=== PATIENT | male | born 1965 | race Caucasian/White ===

== ENCOUNTER 2018-09-23 11:44 | Day surgery (SDC) | payer OTHER ==
[~2018-09-23] VITALS: Ht 188 cm; Wt 110.4 kg
[2018-09-23 12:57] VITALS: BP 124/83
== END 2018-09-23 17:25 | disposition home or self-care (01) ==
LOC: OUT 11:44
PROVIDERS: ATTEND Podiatrist Foot & Ankle Surgery
DX: S93.125A Dislocation of metatarsophalangeal joint of left lesser toe(s), initial encounter (principal); E11.621 Type 2 diabetes mellitus with foot ulcer; I42.9 Cardiomyopathy, unspecified; I10 Essential (primary) hypertension; Z88.2 Allergy status to sulfonamides; Z95.810 Presence of automatic (implantable) cardiac defibrillator; X58.XXXA Exposure to other specified factors, initial encounter; Y93.89 Activity, other specified; Y92.89 Other specified places as the place of occurrence of the external cause; Y99.8 Other external cause status
CPT/HCPCS: 28112; 80053; 82962; 93005; J0171; J0690; J2250; J2704; J3010; J7120

== ENCOUNTER 2018-10-07 06:13 | Day surgery (SDC) | payer OTHER ==
[~2018-10-07] VITALS: Ht 188 cm; Wt 108.4 kg
[~2018-10-07 06:13] MED LIST: AMOX1TAB12 PO; ASPI-496 PO; CARV-39 PO; FENO54TA17 PO; LISI-170 PO; METF500T17 PO; ROSU5TAB PO
[2018-10-07] MEDS ORDERED: methylPREDNISolone *ACETATE* 40 MG/ML ONE (06:20)
[2018-10-07] MEDS ORDERED: BUPIVACAINE/PF 0.25% ONE (06:20)
[2018-10-07] MEDS ORDERED: BETAMETHASONE 6 MG/ML, 5ML IM ONE (06:24)
[2018-10-07] MEDS ORDERED: LACTATED RINGERS 1,000 ML IV SCH (06:47)
[2018-10-07 06:48] VITALS: BP 138/87
[2018-10-07] MEDS ORDERED: BUPIVACAINE/PF 0.5% ONE (07:17)
[2018-10-07] MEDS ORDERED: LIDOCAINE 1%-EPI 1:100K, 30ML ONE (07:18)
[2018-10-07] MEDS ORDERED: FENTANYL PF 100 MCG/2ML ONE (07:19)
[2018-10-07] MEDS ORDERED: MIDAZOLAM 1 MG/ML, 2ML ONE ×3 (07:19→08:41)
[2018-10-07] MEDS ORDERED: CEFAZOLIN 1,000 MG ONE (07:25)
[2018-10-07] MEDS ORDERED: METOPROLOL 1 MG/ML, 5ML ONE (07:25)
[2018-10-07] MEDS ORDERED: OXYcodone 5 MG/5 ML ORAL.SOL UDC PO PRN (08:00)
[2018-10-07] MEDS ORDERED: LABETALOL 5MG/ML, 20ML IV PRN (08:00)
[2018-10-07] MEDS ORDERED: MEPERIDINE/PF 25MG/0.5ML IVPush PRN (08:00)
[2018-10-07] MEDS ORDERED: DIAZEPAM 5 MG/ML, 2ML IVPush PRN (08:00)
[2018-10-07] MEDS ORDERED: ALBUTEROL SULFATE 2.5 MG/3 ML NPPB PRN (08:00)
[2018-10-07] MEDS ORDERED: FENTANYL PF 100 MCG/2ML IV PRN (08:00)
[2018-10-07] MEDS ORDERED: hydrALAzine 20 MG/ML, 1ML IV PRN (08:00)
[2018-10-07] MEDS ORDERED: PROMETHAZINE 25 MG/ML, 1ML IV PRN (08:00)
[2018-10-07] MEDS ORDERED: KETOROLAC 30 MG/1 ML IV PRN (08:00)
[2018-10-07] MEDS ORDERED: HYDROmorphone 2 MG/ML, 1ML IVPush PRN (08:00)
[2018-10-07] MEDS ORDERED: ACETAMINOPHEN 325 MG TABLET PO PRN (08:00)
== END 2018-10-07 11:00 | disposition home or self-care (01) ==
LOC: OUT 06:13
PROVIDERS: ATTEND Podiatrist Foot & Ankle Surgery
DX: M24.474 Recurrent dislocation, right foot (principal); E11.42 Type 2 diabetes mellitus with diabetic polyneuropathy; L89.893 Pressure ulcer of other site, stage 3; E11.621 Type 2 diabetes mellitus with foot ulcer; M20.11 Hallux valgus (acquired), right foot; I11.0 Hypertensive heart disease with heart failure; I50.9 Heart failure, unspecified; I48.91 Unspecified atrial fibrillation; Z79.82 Long term (current) use of aspirin; Z79.84 Long term (current) use of oral hypoglycemic drugs; Z79.899 Other long term (current) drug therapy; Z88.2 Allergy status to sulfonamides; Z88.8 Allergy status to other drugs, medicaments and biological substances; Z95.810 Presence of automatic (implantable) cardiac defibrillator
CPT/HCPCS: 28112; 82962; J0690; J2250; J3010; J3490; J0702; J1030

== ENCOUNTER 2019-06-17 16:11 | Inpatient (IN) | payer OTHER ==
[~2019-06-17] VITALS: Ht 188 cm; Wt 118.2 kg
[2019-06-17] MEDS ORDERED: AMIO200T42 PO (18:55)
[2019-06-17 20:00] VITALS: BP 136/83
[2019-06-17] MEDS ORDERED: METF-649 PO (21:33)
[2019-06-17] MEDS ORDERED: SPIR25TA5 PO (21:35)
[2019-06-17] MEDS ORDERED: AMPI3VIA IV (21:41)
[2019-06-17] MEDS ORDERED: SIMV20TA19 PO (21:46)
[2019-06-17] MEDS ORDERED: VANC2PLA5 IVPB (21:49)
[2019-06-17] MEDS ORDERED: AMPICILLIN SODIUM IV SCH (22:30)
[2019-06-17] MEDS ORDERED: SULBACTAM NA IV SCH (22:30)
[2019-06-17] MEDS ORDERED: hydrALAzine 20 MG/ML, 1ML IVPush PRN (22:30)
[2019-06-17] MEDS ORDERED: VANCOMYCIN PER PHARMACY MC PRN (22:30)
[2019-06-17] MEDS ORDERED: TEMAZEPAM 15 MG CAPSULE PO PRN (22:30)
[2019-06-17] MEDS ORDERED: ACETAMINOPHEN 325 MG TABLET PO PRN (22:30)
[2019-06-17] MEDS ORDERED: LIDODERM 5% PATCH TD PRN (22:30)
[2019-06-17] MEDS ORDERED: DOCUSATE 100 MG CAPSULE PO PRN (22:30)
[2019-06-17] MEDS ORDERED: ONDANSETRON ODT 4 MG PO PRN (22:30)
[2019-06-17 22:36] VITALS: BP 129/78
[2019-06-17] MEDS ORDERED: PHARMACOKINETIC CONSULTATION MC ONE (23:00)
[2019-06-17] MEDS ORDERED: PHARMACOKINETIC MONITORING MC PRN (23:00)
[2019-06-17] MEDS ORDERED: VANCOMYCIN 2,400 MG in SODIUM CHLORIDE 0.9% 500 ML IV ONE (23:00)
[2019-06-17] MEDS ORDERED: SIMVASTATIN 20 MG TABLET ONE (23:10)
[2019-06-17 23:16] LABS: CREATININE 0.89 mg/dL (0.7-1.3)
[2019-06-17] MEDS: CARVEDILOL 12.5 MG TABLET PO SCH (23:23)
[2019-06-17] MEDS: SIMVASTATIN 20 MG TABLET PO SCH (23:25)
[2019-06-17] MEDS: HYDROmorphone 2 MG/ML, 1ML IVPush PRN (23:26)
[2019-06-18] MEDS: AMPICILLIN/SULBACTAM 3 GM in SODIUM CHLORIDE 0.9% 100 ML IV SCH ×5 (00:13→20:00)
[2019-06-18 00:21] VITALS: BP 133/78
[2019-06-18] MEDS: VANCOMYCIN 2,000 MG in SODIUM CHLORIDE 0.9% 500 ML IV SCH ×2 (01:42→14:47)
[2019-06-18 05:07] LABS: BASOPHILS # (AUTO) 0.05 x10^3/uL (0-0.1); BASOPHILS % (AUTO) 1 % (0-1); EOSINOPHILS # (AUTO) 0.17 x10^3/uL (0-0.4); EOSINOPHILS % (AUTO) 2 % (1-7); LYMPHOCYTES # (AUTO) 1.44 x10^3/uL (1-3.4); LYMPHOCYTES % (AUTO) 17 % (22-44); MD NO; MEAN CORPUSCULAR HEMOGLOBIN 32.6 pg (27.5-34.5); MEAN CORPUSCULAR HGB CONC 33.4 g/dL (33.2-36.2); MEAN CORPUSCULAR VOLUME 97.7 fL (81-97); MONOCYTES # (AUTO) 0.71 x10^3/uL (0.2-0.8); MONOCYTES % (AUTO) 9 % (2-9); NEUTROPHILS # (AUTO) 5.97 x10^3/uL (1.8-6.8); NEUTROPHILS % (AUTO) 72 % (42-75); PLATELET COUNT 223 x10^3/uL (130-400); RED BLOOD COUNT 3.15 x10^6/uL (4.38-5.82); RED CELL DISTRIBUTION WIDTH 13.4 % (9.4-14.8)
[2019-06-18 05:15] LABS: ANION GAP 6 mmol/L (5-15); CALCIUM 7.5 mg/dL (8.5-10.1); CHLORIDE 105 mmol/L (98-107); CREATININE 0.96 mg/dL (0.7-1.3)
[2019-06-18] MEDS: INSULIN LISPRO 100 UNITS/ML, PEN SQ-INSULIN SCH ×4 (07:52→21:00)
[2019-06-18 08:00] VITALS: BP 123/82
[2019-06-18] MEDS: AMIODARONE 200 MG TABLET PO SCH (08:34)
[2019-06-18] MEDS: CARVEDILOL 12.5 MG TABLET PO SCH ×2 (08:35→20:01)
[2019-06-18] MEDS: SIMVASTATIN 20 MG TABLET PO SCH ×2 (08:42→20:02)
[2019-06-18] MEDS: LISINOPRIL 20 MG TABLET PO SCH ×2 (10:59→20:01)
[2019-06-18] MEDS: SPIRONOLACTONE 25 MG TABLET PO SCH (11:03)
[2019-06-18 12:12] VITALS: BP 123/76
[2019-06-18] MEDS ORDERED: ENOXAPARIN 40 MG/0.4 ML SQ SCH (17:30)
[2019-06-18 20:45] VITALS: BP 137/86
[2019-06-18] MEDS: HYDROmorphone 2 MG/ML, 1ML IVPush PRN (22:20)
[2019-06-19] MEDS: AMPICILLIN/SULBACTAM 3 GM in SODIUM CHLORIDE 0.9% 100 ML IV SCH ×2 (02:05→09:18)
[2019-06-19 02:59] VITALS: BP 128/67
[2019-06-19] MEDS: VANCOMYCIN 2,000 MG in SODIUM CHLORIDE 0.9% 500 ML IV SCH (03:11)
[2019-06-19 05:33] LABS: HCT (SEDRATE) 30.7 % (39.2-51.8)
[2019-06-19 05:36] LABS: BASOPHILS # (AUTO) 0.05 x10^3/uL (0-0.1); BASOPHILS % (AUTO) 1 % (0-1); EOSINOPHILS # (AUTO) 0.15 x10^3/uL (0-0.4); EOSINOPHILS % (AUTO) 2 % (1-7); LYMPHOCYTES # (AUTO) 1.04 x10^3/uL (1-3.4); LYMPHOCYTES % (AUTO) 15 % (22-44); MD NO; MEAN CORPUSCULAR HEMOGLOBIN 32.8 pg (27.5-34.5); MEAN CORPUSCULAR HGB CONC 33.4 g/dL (33.2-36.2); MEAN CORPUSCULAR VOLUME 98.2 fL (81-97); MEAN PLATELET VOLUME 9.5 fL (7.4-10.4); MONOCYTES % (AUTO) 9 % (2-9); NEUTROPHILS % (AUTO) 73 % (42-75); PLATELET COUNT 254 x10^3/uL (130-400); RED BLOOD COUNT 3.07 x10^6/uL (4.38-5.82); RED CELL DISTRIBUTION WIDTH 13.4 % (9.4-14.8)
[2019-06-19 05:44] LABS: ANION GAP 6 mmol/L (5-15); CALCIUM 7.8 mg/dL (8.5-10.1); CHLORIDE 105 mmol/L (98-107); CREATININE 0.79 mg/dL (0.7-1.3)
[2019-06-19 06:29] VITALS: BP 142/87
[2019-06-19] MEDS: INSULIN LISPRO 100 UNITS/ML, PEN SQ-INSULIN SCH ×2 (07:00→11:05)
[2019-06-19] MEDS ORDERED: PHENYLEPHRINE 50 MG in SODIUM CHLORIDE 0.9% 245 ML IV PRN (07:30)
[2019-06-19] MEDS ORDERED: POTASSIUM CHLORIDE 80 MEQ, SODIUM BICARBONATE 8.4% 10 MEQ, MAGNESIUM SULFATE 0.5 GM, LI... IV PRN (07:30)
[2019-06-19] MEDS ORDERED: MANNITOL PMX 20% 500 ML IVPB PRN (07:30)
[2019-06-19] MEDS ORDERED: CEFUROXIME 1.5 GM in SODIUM CHLORIDE 0.9% 50 ML IVPB PRN (07:30)
[2019-06-19] MEDS ORDERED: REGULAR INSULIN 100 UNITS in SODIUM CHLORIDE 0.9% 99 ML IV PRN (07:30)
[2019-06-19] MEDS ORDERED: VANCOMYCIN 1,800 MG in SODIUM CHLORIDE 0.9% 250 ML IV PRN (07:30)
[2019-06-19] MEDS ORDERED: EPINEPHRINE 5 MG in SODIUM CHLORIDE 0.9% 245 ML IV PRN (07:30)
[2019-06-19] MEDS ORDERED: ALBUMIN HUMAN 5% 500 ML IV PRN (07:30)
[2019-06-19] MEDS ORDERED: DEXMEDETOMIDINE 200 MCG in SODIUM CHLORIDE 0.9% 48 ML IV PRN (07:30)
[2019-06-19] MEDS: SIMVASTATIN 20 MG TABLET PO SCH ×2 (09:00→09:15)
[2019-06-19] MEDS ORDERED: SPIRONOLACTONE 25 MG TABLET PO SCH (09:00)
[2019-06-19] MEDS: LISINOPRIL 20 MG TABLET PO SCH (09:16)
[2019-06-19] MEDS: SPIRONOLACTONE 25 MG TABLET PO SCH (09:16)
[2019-06-19] MEDS: AMIODARONE 200 MG TABLET PO SCH (09:16)
[2019-06-19] MEDS: CARVEDILOL 12.5 MG TABLET PO SCH (09:17)
[2019-06-19] MEDS ORDERED: PROPOFOL 50 ML ONE ×2 (12:30→13:39)
[2019-06-19] MEDS ORDERED: FENTANYL PF 250 MCG/5ML ONE (12:30)
[2019-06-19] MEDS ORDERED: MIDAZOLAM 1 MG/ML, 2ML ONE ×2 (12:49→15:41)
[2019-06-19] MEDS ORDERED: VANCOMYCIN 500 MG ONE (13:12)
[2019-06-19] MEDS ORDERED: LIDOCAINE 1%, 20ML ONE (13:12)
[2019-06-19] MEDS ORDERED: ONDANSETRON 2MG/ML, 2ML ONE ×2 (13:36)
[2019-06-19] MEDS ORDERED: PROPOFOL 10 MG/ML, 20ML ONE (13:36)
[2019-06-19] MEDS ORDERED: ROCURONIUM 10MG/ML,5ML ONE (13:36)
[2019-06-19] MEDS ORDERED: SUCCINYLCHOLINE 20 MG/ML, 10ML ONE (13:36)
[2019-06-19] MEDS ORDERED: EPINEPHRINE SYRINGE 0.1 MG/ML, 10ML ONE (15:21)
[2019-06-19] MEDS ORDERED: EPINEPHRINE 1 MG/ML, 1ML ONE ×3 (15:23)
[2019-06-19] MEDS ORDERED: HEPARIN 1,000 UNITS/ML, 30ML ONE (16:04)
== END 2019-06-19 20:43 | disposition expired | DRG 215 ==
LOC: 5SO 18:15
PROVIDERS: ADMIT Internal Medicine Infectious Disease; ATTEND Internal Medicine Infectious Disease
PROC: 02PA3MZ Removal of Cardiac Lead from Heart, Percutaneous Approach (ICD-10-PCS; 2019-06-19)
PROC: 5A0221D Assistance with Cardiac Output using Impeller Pump, Continuous (ICD-10-PCS; 2019-06-19)
PROC: 5A12012 Performance of Cardiac Output, Single, Manual (ICD-10-PCS; 2019-06-19)
PROC: 02HA3RZ Insertion of Short-term External Heart Assist System into Heart, Percutaneous Approach (ICD-10-PCS; principal; 2019-06-19 13:00)
DX: T82.7XXA Infection and inflammatory reaction due to other cardiac and vascular devices, implants and grafts, initial encounter (principal); I26.99 Other pulmonary embolism without acute cor pulmonale; I33.0 Acute and subacute infective endocarditis; I50.42 Chronic combined systolic (congestive) and diastolic (congestive) heart failure; I13.0 Hypertensive heart and chronic kidney disease with heart failure and stage 1 through stage 4 chronic kidney disease, or unspecified chronic kidney disease; I42.0 Dilated cardiomyopathy; M86.8X7 Other osteomyelitis, ankle and foot; I46.9 Cardiac arrest, cause unspecified; I50.82 Biventricular heart failure; N18.3 Chronic kidney disease, stage 3 (moderate); E11.22 Type 2 diabetes mellitus with diabetic chronic kidney disease; E11.21 Type 2 diabetes mellitus with diabetic nephropathy; E78.5 Hyperlipidemia, unspecified; K59.00 Constipation, unspecified; B95.4 Other streptococcus as the cause of diseases classified elsewhere; E11.621 Type 2 diabetes mellitus with foot ulcer; L97.519 Non-pressure chronic ulcer of other part of right foot with unspecified severity; Y83.8 Other surgical procedures as the cause of abnormal reaction of the patient, or of later complication, without mention of misadventure at the time of the procedure; E11.69 Type 2 diabetes mellitus with other specified complication; Y83.1 Surgical operation with implant of artificial internal device as the cause of abnormal reaction of the patient, or of later complication, without mention of misadventure at the time of the procedure; M48.061 Spinal stenosis, lumbar region without neurogenic claudication; Z95.810 Presence of automatic (implantable) cardiac defibrillator; Z87.891 Personal history of nicotine dependence; Z88.2 Allergy status to sulfonamides; Z79.4 Long term (current) use of insulin; Z82.49 Family history of ischemic heart disease and other diseases of the circulatory system; Z88.0 Allergy status to penicillin; Z79.82 Long term (current) use of aspirin; Y92.098 Other place in other non-institutional residence as the place of occurrence of the external cause; Z79.84 Long term (current) use of oral hypoglycemic drugs
CPT/HCPCS: 36415; 99285; J3490; 80048; 82565; 82962; 83036; 85025; 85347; 85651; 86140; 87070; 93005; 93312; G0378; J0171; J0295; J1170; J1644; J1815; J2250; J2405; J2704; J3010; J3370; J3475; J3480; J0330; J2370; J7040; J7050